=== PATIENT | male | born 1955 | race Caucasian/White ===

== ENCOUNTER → 2018-08-08 | Outpatient (CLI) | payer OTHER ==
--- NOTE | 2018-08-08 10:20 | XR ---
EXAMINATION TYPE: XR KUB DATE OF EXAM: 08/08/2018 COMPARISON: NONE HISTORY: rt sided abdominal pain TECHNIQUE: One view abdominal series FINDINGS: The osseous structures are intact. The bowel gas pattern is nonspecific. Retained fecal debris throu ghout the colon. IMPRESSION: 1. Nonspecific abdomen. Correlate for constipation.
== END | disposition home or self-care (01) ==
LOC: RADXRMAIN 09:48
PROVIDERS: ATTEND Urology
DX: N20.1 Calculus of ureter (principal)
CPT/HCPCS: 74018

== ENCOUNTER 2020-10-21 18:05 | Emergency (ER) | payer OTHER ==
[2020-10-21 18:09] VITALS: BP 136/80; RESP 20; TEMP 98.7
[2020-10-21] MEDS ORDERED: methylPREDNISolone SOD SUCCI 125 MG/2 ML VIAL IM ONE (18:21)
[2020-10-21] MEDS ORDERED: FAMOTIDINE 20 MG TAB PO STA (18:21)
[2020-10-21] MEDS ORDERED: KETOROLAC 15 MG/ML 1 ML VIAL IM STA (18:21)
[2020-10-21] MEDS ORDERED: diphenhydrAMINE 50 MG/ML 1 ML VIAL IM STA (18:21)
[2020-10-21] MEDS ORDERED: ACETAMINOPHEN TAB 500 MG TAB PO STA (18:21)
--- NOTE | 2020-10-21 18:23 | ED ---
General Adult HPI - General Chief complaint: Animal Bite Stated complaint: Bee sting Time Seen by Provider: 10/21/20 18:11 Source: patient Mode of arrival: ambulatory Limitations: no limitations - History of Present Illness Initial comments: 65 year-old male patient presents to the emergency department for evaluation of bee sting reaction. Patient states around 5pm he was attacked by bees and stung multiple times on his legs, feet, and arms. States that he started to feel "bad" after being stung so he got into the hot tub. He started to have more pain at the sting sites so got out and noticed that the areas were red and swollen. He also developed rash to the underarms. Denies any lip, tongue, or throat swelling. Denies difficulty breathing or abdominal pain. States he did have some indigestion. Denies any dizziness or fainting. Denies history of allergic reaction to bees. Denies any other known allergies. Did not take any medication prior to arrival. - Related Data Previous Rx's Medication Instructions Recorded EPINEPHrine (Auto Inject) [Epipen] 0.3 mg IM ONCE PRN #2 pen 10/21/20 Famotidine [Pepcid] 20 mg PO DAILY #3 tablet 10/21/20 predniSONE 50 mg PO DAILY #3 tab 10/21/20 Allergies Allergy/AdvReac Type Severity Reaction Status Date / Time bee venom protein (honey bee) Allergy Swelling Verified 10/21/20 18:10 Review of Systems ROS Statement: Those systems with pertinent positive or pertinent negative responses have been documented in the HPI. ROS Other: All systems not noted in ROS Statement are negative. Past Medical History Past Medical History: No Reported History History of Any Multi-Drug Resistant Organisms: None Reported Past Surgical History: Appendectomy Additional Past Surgical History / Comment(s): neck surgery Past Psychological History: No Psychological Hx Reported Smoking Status: Never smoker Past Alcohol Use History: None Reported Past Drug Use History: None Reported General Exam Limitations: no limitations General appearance: alert, in no apparent distress, other (Physical well- developed, well-nourished adult male patient in no acute distress. Vital signs upon presentation temperature 98.7F, pulse 122, respirations 20, blood pressure 136/80, pulse ox 95% on room air.) Eye exam: Present: normal appearance, PERRL, EOMI. Absent: scleral icterus, conjunctival injection, periorbital swelling ENT exam: Present: normal exam, normal oropharynx, mucous membranes moist Respiratory exam: Present: normal lung sounds bilaterally. Absent: respiratory distress, wheezes, rales, rhonchi, stridor Cardiovascular Exam: Present: normal rhythm, tachycardia, normal heart sounds. Absent: systolic murmur, diastolic murmur, rubs, gallop, clicks GI/Abdominal exam: Present: soft, normal bowel sounds. Absent: distended, tenderness, guarding, rebound, rigid Neurological exam: Present: alert, oriented X3, CN II-XII intact Psychiatric exam: Present: normal affect, normal mood Skin exam: Present: warm, dry, intact, normal color, rash (Urticarial type rash noted to the bilateral upper arms anteriorly. There is multiple erythematous swollen areas to the legs and to the right arm consistent with bee sting lesions. ) Course Vital Signs 10/21/20 18:06 Temperature 98.7 F Pulse Rate 122 H Respiratory 20 Rate Blood Pressure 136/80 O2 Sat by Pulse 95 Oximetry Medical Decision Making - Medical Decision Making 65 year-old male patient presents to the emergency department for evaluation of bee sting with rash and pain to the lesions. Physical examination did reveal mulitiple bee stings with local erythema and swelling. He also exhibited urticarial rash to the bilateral upper arms over the anterior aspect. He had no facial, lip, tongue, or throat swelling. Initially tachycardic which did improve. He was given IM Solu-Medrol, Toradol, Benadryl. He'll be discharged with prescription for prednisone and Pepcid. Instructed to take Benadryl as needed. He is also given prescription for EpiPen. He is instructed to follow- up with his primary care physician for recheck in 1-2 days. Return parameters were discussed in detail. He verbalizes understanding and agrees with this plan. Case discussed with my attending Dr. Yun. Disposition Clinical Impression: Allergic reaction to bee sting Disposition: HOME SELF-CARE Condition: Good Instructions (If sedation given, give patient instructions): Insect Bite or Sting (ED), General Allergic Reaction (ED) Additional Instructions: Take medications as directed. Take over the counter benadryl every 6 hours as needed. Follow up with the primary care physician for recheck in 1-2 days. Return to the emergency department for evaluation for any new, worsening, or concerning symptoms. Prescriptions: EPINEPHrine (Auto Inject) [Epipen] 0.3 mg IM ONCE PRN #2 pen PRN Reason: Anaphylaxis Famotidine [Pepcid] 20 mg PO DAILY #3 tablet predniSONE 50 mg PO DAILY #3 tab Is patient prescribed a controlled substance at d/c from ED?: No Referrals: Talha Pimentel MD [Primary Care Provider] - 1-2 days Time of Disposition: 18:23
[2020-10-21 18:43] VITALS: PULSE 96
== END 2020-10-21 18:49 | disposition home or self-care (01) ==
LOC: EC 18:05
DX: T63.441A Toxic effect of venom of bees, accidental (unintentional), initial encounter (principal)
CPT/HCPCS: 96372; 99283

== ENCOUNTER 2021-12-19 10:58 | Day surgery (SDC) | payer MEDICARE, OTHER ==
[~2021-12-19 10:58] MED LIST: LACTATED RINGERS 1,000 ML IV SCH
[2021-12-19 11:29] VITALS: RESP 16; TEMP 97
[2021-12-19] MEDS ORDERED: PROPOFOL 10 MG/ML 20 ML VIAL IV ONE (11:36)
--- NOTE | 2021-12-19 11:52 | P.PCN ---
Date of Procedure: 12/19/21 Procedure(s) Performed: BRIEF HISTORY: Patient is a 66-year-old pleasant white male scheduled for an elective colonoscopy as a part of screening for colorectal neoplasia. PROCEDURE PERFORMED: Colonoscopy. PREOPERATIVE DIAGNOSIS: Screening for colon cancer. IV sedation per Anesthesia. PROCEDURE: After informed consent was obtained, the patient, was brought into the endoscopy unit. IV sedation was administered by Anesthesia under continuous monitoring. Digital rectal examination was normal. Initially the Olympus CF-160 flexible video colonoscope was then inserted in the rectum, gradually advanced into the cecum without any difficulty. Careful examination was performed as the scope was gradually being withdrawn. Ileocecal valve and the appendiceal orifice were visualized and appeared normal. Prep was excellent. Mucosa of the cecum, ascending colon, transverse colon, descending colon, sigmoid colon, and rectum appeared normal. Retroflexion was performed in the rectum and no lesions were seen. Scattered sigmoid diverticulosis. The patient tolerated the procedure well. IMPRESSION: Normal-appearing colon from rectum to cecum with no evidence of colorectal neoplasia Scattered sigmoid diverticulosis . RECOMMENDATIONS: Findings of this examination were discussed with the patient Family. He was advised to have a repeat screening colonoscopy in 10 years..
[2021-12-19 12:26] VITALS: BP 129/71; PULSE 63
== END 2021-12-19 12:40 | disposition home or self-care (01) ==
LOC: ORWHC2ENDO 10:58
PROVIDERS: ATTEND Internal Medicine Gastroenterology
DX: Z12.11 Encounter for screening for malignant neoplasm of colon (principal); K57.30 Diverticulosis of large intestine without perforation or abscess without bleeding
CPT/HCPCS: G0121; J2704; 45378